=== PATIENT | male | born 1980 | race Caucasian/White ===

== ENCOUNTER 2016-08-29 09:39 | Emergency (ER) | payer OTHER ==
[2016-08-29 10:16] VITALS: BP 135/94
--- NOTE | 2016-08-29 10:38 | UC ---
Abdominal Pain Male HPI - HPI Summary HPI Summary: 2 nights ago developed nausea and vomiting; had lots of vomiting through about noon yesterday, then developed significant diarrhea (> than 20 times per day) since then. Has been seeing BRBPR on toilet paper, in water, and on stool. Pt has IBS, celiac, and long history of GI problems and has had bloody stool in the past, though this is worse. He feels he has hemorrhoids and thinks the bleeding will resolve on its own. Does not want rectal exam today. Mostly here for work note because he does not get much sick time. - History of Current Complaint Chief Complaint: UCGeneralIllness Stated Complaint: DIARRHEA/VOMITING Time Seen by Provider: 08/29/16 10:13 Hx Obtained From: Patient Onset/Duration: Sudden Onset, Lasting Days Timing: Constant Severity Initially: Moderate Severity Currently: Moderate Location: Diffuse Radiates: No Character: Aching, Cramping Aggravating Factor(s):: Nothing Alleviating Factor(s): Nothing Associated Signs And Symptoms: Positive: Vomiting, Diarrhea - Allergies/Home Medications Allergies/Adverse Reactions: Allergies Allergy/AdvReac Type Severity Reaction Status Date / Time seasonal Allergy Coughing Uncoded 08/29/16 10:11 Home Medications: Home Medications Esomeprazole(NF) [NexIUM(NF)] 40 mg PO DAILY 08/29/16 [History Confirmed ] PMH/Surg Hx/FS Hx/Imm Hx GI/ History: Diverticulitis, Other - celiac disease, IBS Other GI/ History: celiac, IBS - Surgical History Surgical History: Yes Surgery Procedure, Year, and Place: RIGHT ANKLE and leg with titanium plates, ,[facility] [place] - Family History Known Family History: Positive: None, Cardiac Disease, Hypertension, Diabetes, Other - FATHER SEVERE ARTRITIS - Social History Occupation: Employed Full-time Alcohol Use: Weekly Alcohol Amount: 4 vodkas on weekend Substance Use Type: None Smoking Status (MU): Never Smoked Tobacco Type: Smokeless Tobacco Amount Used/How Often: 1 can every 2-3 days Length of Time of Smoking/Using Tobacco: 18 years Review of Systems Constitutional: Negative Skin: Negative Eyes: Negative ENT: Negative Respiratory: Negative Cardiovascular: Negative Gastrointestinal: Abdominal Pain, Vomiting, Diarrhea Genitourinary: Negative Motor: Negative Neurovascular: Negative Musculoskeletal: Negative Neurological: Negative Psychological: Negative All Other Systems Reviewed And Are Negative: Yes Physical Exam Triage Information Reviewed: Yes Appearance: Well-Appearing, No Pain Distress, Well-Nourished Vital Signs: Initial Vital Signs Temp 97.9 F 08/29/16 10:12 Pulse 90 08/29/16 10:12 Resp 16 08/29/16 10:12 BP 135/94 08/29/16 10:12 Pulse Ox 97 08/29/16 10:12 Vital Signs Reviewed: Yes Eye Exam: Normal Eyes: Positive: Conjunctiva Clear ENT Exam: Normal ENT: Positive: Normal ENT inspection, Hearing grossly normal, Pharynx normal, TMs normal Dental Exam: Normal Neck exam: Normal Neck: Positive: Supple, Nontender, No Lymphadenopathy Respiratory Exam: Normal Respiratory: Positive: Chest non-tender, Lungs clear, Normal breath sounds, No respiratory distress, No accessory muscle use Cardiovascular Exam: Normal Cardiovascular: Positive: RRR, No Murmur Abdomen Description: Positive: Soft. Negative: Nontender - diffusely tender, CVA Tenderness (R), CVA Tenderness (L), McBurney's Point Tenderness Bowel Sounds: Positive: Present Musculoskeletal Exam: Normal Neurological Exam: Normal Neurological: Positive: Alert Psychological Exam: Normal Skin Exam: Normal Abd Pain Male Course/Dx - Differential Dx/Clinical Impression Provider Diagnoses: acute gastroenteritis. elevated blood pressure due to discomfort Discharge - Discharge Plan Condition: Stable Disposition: HOME Patient Education Materials: Gastroenteritis (ED) Forms: *Work Release Referrals: No Primary Care Phys,NOPCP [Primary Care Provider] - Additional Instructions: As we discussed, your symptoms sound consistent with a viral infection. Though it can take a while for stool patterns to normalize, I would expect your symptoms to fall noticeably in frequency by this weekend. If they don't, please go to the emergency department. You have stated that the bright red blood in your stool has happened to you before and that you are pretty sure you have hemorrhoids right now. Since you declined an exam, it is important for you to see your GI specialist if the bleeding does not fully resolve within a week.
== END 2016-08-29 10:40 | disposition home or self-care (01) ==
LOC: UCCORT 09:39
DX: K52.9 Noninfective gastroenteritis and colitis, unspecified (principal); R03.0 Elevated blood-pressure reading, without diagnosis of hypertension; F17.220 Nicotine dependence, chewing tobacco, uncomplicated
CPT/HCPCS: 99211; G0463

== ENCOUNTER 2016-10-22 12:42 | Emergency (ER) | payer OTHER ==
[2016-10-22 13:06] VITALS: BP 160/101
--- NOTE | 2016-10-22 13:32 | UC ---
Breast Complaint - HPI Summary HPI Summary: lump on left breast x 1 week noted a lump under the left nipple, + soft, mild tenderness , no redness or discharge, not getting larger or smaller over the past week - History of Current Complaint Hx Obtained From: Patient Breast Chief Complaint: Palpable Lump - left breast Onset/Duration: Started Days Ago - 7, Still Present Timing: Constant Breast Pain Radiates To: Other: - none Breast Pain Aggravating Factors: Palpation Breast Pain Alleviating Factors: Nothing Breast Associated Signs/Symptoms: Negative - Allergy/Home Medications Allergies/Adverse Reactions: Allergies Allergy/AdvReac Type Severity Reaction Status Date / Time seasonal Allergy Coughing Uncoded 10/22/16 12:55 PMH/Surg Hx/FS Hx/Imm Hx Cardiovascular History: Hypertension - Surgical History Surgical History: Yes Surgery Procedure, Year, and Place: RIGHT ANKLE and leg with titanium plates, ,[facility] – [place] - Family History Known Family History: Positive: None, Cardiac Disease, Hypertension, Diabetes, Other - FATHER SEVERE ARTRITIS - Social History Alcohol Use: Weekly Alcohol Amount: On weekends Substance Use Type: None Smoking Status (MU): Never Smoked Tobacco Type: Smokeless Tobacco Amount Used/How Often: 1 can every 2-3 days Length of Time of Smoking/Using Tobacco: 18 years - Immunization History Most Recent Influenza Vaccination: NONE 2015 Most Recent Tetanus Shot: 2011 Most Recent Pneumonia Vaccination: N/A Review of Systems Constitutional: Negative Skin: Negative Eyes: Negative ENT: Negative Respiratory: Negative Cardiovascular: Negative All Other Systems Reviewed And Are Negative: Yes Physical Exam Triage Information Reviewed: Yes Appearance: Well-Appearing, No Pain Distress, Well-Nourished Vital Signs: Initial Vital Signs Temp 96.8 F 10/22/16 12:57 Pulse 101 10/22/16 12:57 Resp 18 10/22/16 12:57 BP 160/101 10/22/16 12:57 Pulse Ox 100 10/22/16 12:57 Vital Signs Reviewed: Yes Eyes: Positive: Conjunctiva Clear ENT: Positive: Normal ENT inspection, Hearing grossly normal, Pharynx normal Neck: Positive: Supple, Nontender, No Lymphadenopathy Respiratory: Positive: Chest non-tender, Lungs clear, Normal breath sounds, Other: - breast exam : left breast: no swelling, no erythema, + 1 cm cystic mass under the left breast , movable, mild tenderness, Cardiovascular: Positive: No Murmur, Tachycardia Abdominal Exam: Normal Abdomen Description: Positive: Soft Bowel Sounds: Positive: Present Breast Pain Course/Dx - Diagnoses Provider Diagnoses: Breast cyst, Hypertension Discharge - Discharge Plan Condition: Stable Disposition: HOME Prescriptions: Lisinopril [Zestril 10 MG-] 10 mg PO DAILY #30 tab Patient Education Materials: Chronic Hypertension (ED), Cyst (ED) Referrals: [facility] [Outside] No Primary Care Phys,NOPCP [Primary Care Provider] - Additional Instructions: 1. cyst left breast: please monitor the area for now , have a follow up in 4 weeks, if the mass is not gone may need an Ultrasound / more workup 2. hypertension : will restart your blood pressure medication. check you bp 2x per week and keep a log follow up with your pcp in 4 weeks
== END 2016-10-22 13:40 | disposition home or self-care (01) ==
LOC: UCCORT 12:42
DX: N60.02 Solitary cyst of left breast (principal); I10 Essential (primary) hypertension
CPT/HCPCS: 99212; G0463

== ENCOUNTER 2016-11-12 08:50 | Emergency (ER) | payer OTHER ==
[2016-11-12 09:44] VITALS: BP 126/73
--- NOTE | 2016-11-12 09:57 | UC ---
Throat Pain/Nasal Leonel HPI - HPI Summary HPI Summary: 36 yo male with sore throat/nasal congestion and sinus tenderness x 3-4 weeks state he was supposed to have sinus surgery no f/c no cp/cough - History of Current Complaint Chief Complaint: UCRespiratory Stated Complaint: SORE THROAT Time Seen by Provider: 11/12/16 09:44 Hx Obtained From: Patient Onset/Duration: Gradual Onset Severity: Moderate Pain Intensity: 4 Pain Scale Used: 0-10 Numeric Cough: Nonproductive Associated Signs & Symptoms: Positive: Sinus Discomfort, Nasal Discharge - Epiglottits Risk Factors Epiglottis Risk Factors: Negative - Allergies/Home Medications Allergies/Adverse Reactions: Allergies Allergy/AdvReac Type Severity Reaction Status Date / Time seasonal Allergy Coughing Uncoded 11/12/16 09:27 Home Medications: Home Medications Lisinopril [Zestril 10 MG-] 10 mg PO QPM 11/12/16 [History Confirmed 11/12/16] PMH/Surg Hx/FS Hx/Imm Hx Previously Healthy: Yes Cardiovascular History: Hypertension - Surgical History Surgical History: Yes Surgery Procedure, Year, and Place: RIGHT ANKLE and leg with titanium plates, ,[facility] [place] - Family History Known Family History: Positive: Cardiac Disease, Hypertension, Diabetes, Other - FATHER SEVERE ARTRITIS/strong fhx of lymphoma - Social History Alcohol Use: Weekly Alcohol Amount: On weekends-6 Substance Use Type: None Smoking Status (MU): Never Smoked Tobacco Type: Smokeless Tobacco Amount Used/How Often: 1 can every 2-3 days Length of Time of Smoking/Using Tobacco: 18 years - Immunization History Most Recent Influenza Vaccination: NONE 2015 Most Recent Tetanus Shot: 2011 Most Recent Pneumonia Vaccination: N/A Review of Systems Constitutional: Negative Skin: Negative Eyes: Negative ENT: Ear Ache, Nasal Discharge, Sinus Congestion, Sinus Pain/Tenderness Respiratory: Cough Cardiovascular: Negative Gastrointestinal: Negative Genitourinary: Negative Motor: Negative Neurovascular: Negative Musculoskeletal: Negative Neurological: Negative Psychological: Negative All Other Systems Reviewed And Are Negative: Yes Physical Exam Triage Information Reviewed: Yes Appearance: Well-Appearing, No Pain Distress, Well-Nourished Vital Signs: Initial Vital Signs Temp 97.7 F 11/12/16 09:19 Pulse 98 11/12/16 09:19 Resp 18 11/12/16 09:19 BP 126/73 11/12/16 09:19 Pulse Ox 97 11/12/16 09:19 Vital Signs Reviewed: Yes Eyes: Positive: Conjunctiva Clear ENT: Positive: Hearing grossly normal, Pharyngeal erythema, Nasal congestion, Nasal drainage, TM bulging. Negative: TM red, Tonsillar exudate, Trismus, Muffled/hoarse voice Neck: Positive: Supple, Nontender, No Lymphadenopathy Respiratory: Positive: Lungs clear, Normal breath sounds, No respiratory distress, No accessory muscle use Cardiovascular: Positive: RRR, No Murmur Abdomen Description: Positive: Nontender, No Organomegaly, Soft. Negative: CVA Tenderness (R), CVA Tenderness (L), Distended, Guarding Bowel Sounds: Positive: Present Musculoskeletal: Positive: ROM Intact, No Edema Neurological: Positive: Alert Psychological Exam: Normal Skin Exam: Normal Throat Pain/Nasal Course/Dx - Differential Dx/Diagnosis Provider Diagnoses: acute sinusitis/pharyngitis Discharge - Discharge Plan Condition: Stable Disposition: HOME Prescriptions: Amoxicillin PO (*) [Amoxicillin 875 MG (*)] 875 mg PO BID #20 tab Lisinopril [Zestril 10 MG-] 10 mg PO DAILY #7 tab Patient Education Materials: Sinusitis (ED) Referrals: Jerri Chau PA [Primary Care Provider] - 6 Days (if not better) Additional Instructions: saline nasal spray 2 sprays twice daily
== END 2016-11-12 09:58 | disposition home or self-care (01) ==
LOC: UCCORT 08:50
DX: J01.90 Acute sinusitis, unspecified (principal); J02.9 Acute pharyngitis, unspecified; I10 Essential (primary) hypertension
CPT/HCPCS: 87651; 99212; G0463

== ENCOUNTER 2017-03-18 17:21 | Emergency (ER) | payer OTHER ==
--- NOTE | 2017-03-18 19:34 | UC ---
Back Pain HPI - HPI Summary HPI Summary: 36 YEAR OLD MALE PRESENTS WITH COMPLAINS OF BACK PAIN SECONDARY TO A FALL. - History of Current Complaint Stated Complaint: BACK PAIN DUE TO FALL Time Seen by Provider: 03/18/17 19:33 Hx Obtained From: Patient Onset/Duration: Sudden Onset Timing: Constant Severity Initially: Moderate Severity Currently: Moderate - Allergies/Home Medications Allergies/Adverse Reactions: Allergies Allergy/AdvReac Type Severity Reaction Status Date / Time seasonal Allergy Coughing Uncoded 03/18/17 19:43 PMH/Surg Hx/FS Hx/Imm Hx Previously Healthy: Yes - Surgical History Surgical History: Yes Surgery Procedure, Year, and Place: RIGHT ANKLE and leg with titanium plates, ,[facility] – [place] - Family History Known Family History: Positive: Cardiac Disease, Hypertension, Diabetes, Other - FATHER SEVERE ARTRITIS/strong fhx of lymphoma - Social History Alcohol Use: Weekly Alcohol Amount: On weekends-6 Substance Use Type: None Smoking Status (MU): Never Smoked Tobacco Type: Smokeless Tobacco Amount Used/How Often: 1 can every 2-3 days Length of Time of Smoking/Using Tobacco: 18 years - Immunization History Most Recent Influenza Vaccination: NONE 2015 Most Recent Tetanus Shot: 2011 Most Recent Pneumonia Vaccination: N/A Review of Systems Constitutional: Negative Skin: Negative Eyes: Negative ENT: Negative Respiratory: Negative Cardiovascular: Negative Gastrointestinal: Negative Genitourinary: Negative Motor: Negative Neurovascular: Negative Musculoskeletal: Other: - UPPER BACK PAIN Neurological: Negative Psychological: Negative All Other Systems Reviewed And Are Negative: Yes Physical Exam Triage Information Reviewed: Yes Vital Signs Reviewed: Yes Eye Exam: Normal ENT Exam: Normal Dental Exam: Normal Neck exam: Normal Neck: Positive: 1 Respiratory Exam: Normal Cardiovascular Exam: Normal Abdominal Exam: Normal Musculoskeletal: Positive: Other: - UPER BACK PAIN Neurological Exam: Normal Psychological Exam: Normal Skin Exam: Normal Back Pain Course/Dx - Differential Dx/Diagnosis Provider Diagnoses: UPPER BACK PAIN Discharge - Discharge Plan Condition: Stable Disposition: HOME Prescriptions: Ibuprofen TAB* [Motrin TAB* 800 MG] 800 mg PO Q6H #30 tab Methocarbamol TAB* [Robaxin 500 MG TAB*] 500 mg PO TID PRN #30 tab PRN Reason: Spasms - Back Patient Education Materials: Low Back Strain (ED), Hematuria (ED) Forms: *Work Release Referrals: Ally Martinez MD [Medical Doctor] - Jerri Chau PA [Physician [employer]] -
[2017-03-18 19:43] VITALS: BP 127/83
--- NOTE | 2017-03-18 20:24 | RAD ---
INDICATION: Back pain fall. COMPARISON: None TECHNIQUE: Upright 2 view imaging was performed FINDINGS: Bones: There are no acute bony findings. There are no significant osteoarthritic findings. Alignment: There is minor kyphosis. Disc spaces: The disc spaces are well-maintained Soft tissues: There are no soft tissue abnormalities. IMPRESSION: NO ACUTE BONY FINDINGS.
== END 2017-03-18 20:47 | disposition home or self-care (01) ==
LOC: UCCORT 17:21
DX: M54.6 Pain in thoracic spine (principal)
CPT/HCPCS: 72070; 81003; 99212; G0463

== ENCOUNTER 2017-04-30 09:01 | Emergency (ER) | payer OTHER ==
[2017-04-30 10:05] VITALS: BP 125/85
--- NOTE | 2017-04-30 10:22 | UC ---
GI Bleed HPI - HPI Summary HPI Summary: Vomiting and diarrhea starting Friday. he has no significant pain. He has hx of IBS. - History Of Current Complaint Chief Complaint: UCGI Stated Complaint: VOMITING NEEDS DR NOTE Time Seen by Provider: 04/30/17 10:05 Hx Obtained From: Patient Onset/Duration: Gradual Onset, Lasting Days Severity: Blood-Streaked Stool Severity Initially: Mild Severity Currently: Moderate Pain Intensity: 0 Associated Pain: None Character: Not Applicable Aggravating Factor(s): Food Associated Signs And Symptoms: Positive: Nausea. Negative: Dizziness, Weakness , Syncope, Constipation, Rectal Pain, Bruising, Weight Loss - Allergies/Home medications Allergies/Adverse Reactions: Allergies Allergy/AdvReac Type Severity Reaction Status Date / Time seasonal Allergy Coughing Uncoded 04/30/17 10:02 Home Medications: Home Medications Bupropion XL* [Wellbutrin XL *] 300 mg PO DAILY 04/30/17 [History Confirmed ] PMH/Surg Hx/FS Hx/Imm Hx Previously Healthy: No - IBS. - Surgical History Surgical History: Yes Surgery Procedure, Year, and Place: RIGHT [place]LE and leg with [place] plates, [place] [place] - Family History Known Family History: Positive: Cardiac Disease, Hypertension, Diabetes, Other - FATHER SEVERE ARTRITIS/strong fhx of lymphoma - Social History Occupation: Employed Full-time Alcohol Use: Occasionally Alcohol Amount: On weekends-6 Substance Use Type: None Smoking Status (MU): Current Some Day Smoker Type: Smokeless Tobacco Amount Used/How Often: 1 can every 2-3 days Length of Time of Smoking/Using Tobacco: 18 years - Immunization History Most Recent Influenza Vaccination: NONE 2015 Most Recent Tetanus Shot: 2011 Most Recent Pneumonia Vaccination: N/A Review of Systems Gastrointestinal: Vomiting, Diarrhea All Other Systems Reviewed And Are Negative: Yes Physical Exam Triage Information Reviewed: Yes Appearance: Well-Appearing, No Pain Distress, Well-Nourished Vital Signs: Initial Vital Signs Temp 98.7 F 04/30/17 10:01 Pulse 95 04/30/17 10:01 Resp 16 04/30/17 10:01 BP 125/85 04/30/17 10:01 Pulse Ox 97 04/30/17 10:01 Vital Signs Reviewed: Yes Eyes: Positive: Conjunctiva Clear. Negative: Conjunctiva Inflamed ENT: Positive: Pharynx normal Neck: Positive: Supple, Nontender, No Lymphadenopathy Respiratory: Positive: Lungs clear, Normal breath sounds, No respiratory distress, No accessory muscle use. Negative: Respiratory distress, Decreased breath sounds, Accessory muscle use, Crackles, Rhonchi, Stridor, Wheezing Cardiovascular: Positive: No Murmur, Pulses Normal, Brisk Capillary Refill Abdomen Description: Positive: No Organomegaly, Soft. Negative: Distended, Guarding Musculoskeletal: Positive: Strength Intact, ROM Intact, No Edema Neurological: Positive: Alert, Muscle Tone Normal. Negative: Fatigued Psychological: Positive: Normal Response To Family, Age Appropriate Behavior Skin: Negative: rashes Bleed Course/Dx - Differential Dx/Diagnosis Provider Diagnoses: gastroenteritis. Discharge - Discharge Plan Condition: Good Disposition: HOME Prescriptions: Diphenoxylat/Atrop 2.5-0.025M* [Lomotil TAB*] 1 tab PO QID PRN #12 tab MDD 3 PRN Reason: Diarrhea Ondansetron ODT TAB* [Zofran 4 MG Odt TAB*] 4 mg PO Q8H PRN #10 tab.odt PRN Reason: Nausea Patient Education Materials: Gastroenteritis (ED) Forms: *Work Release Referrals: No Primary Care Phys,NOPCP [Primary Care Provider] -
== END 2017-04-30 10:23 | disposition home or self-care (01) ==
LOC: UCCORT 09:01
DX: K52.9 Noninfective gastroenteritis and colitis, unspecified (principal); R11.0 Nausea; Z72.0 Tobacco use
CPT/HCPCS: 99212; G0463

== ENCOUNTER 2017-10-05 10:43 | Emergency (ER) | payer OTHER ==
[2017-10-05 11:48] VITALS: BP 131/83
== END 2017-10-05 12:20 | disposition left against medical advice (07) ==
LOC: UCCORT 10:43
DX: M25.9 Joint disorder, unspecified (principal); Z53.21 Procedure and treatment not carried out due to patient leaving prior to being seen by health care provider

== ENCOUNTER 2017-10-10 09:16 | Emergency (ER) | payer OTHER ==
[2017-10-10 09:42] VITALS: BP 151/99
--- NOTE | 2017-10-10 10:56 | UC ---
Abdominal Pain Male HPI - HPI Summary HPI Summary: Pt c/o generalized abdominal pain that began 2 days ago. Pt reports that friday morning he began vomiting "violently all day and in into the night" . Pt also reports that he had sudden onset of diarrhea with onset of vomiting as well. Pt states that nausea, vomiting and diarrhea have resolved. But continues with generalized abdominal pain, decreased appetite and malaise. Pt has hx of IBS and umbilical hernia. Pt denies increase pain at hernia and reports that he has not had a "flare" of IBS recently. Pt last BM yesterday, normal pattern is once daily. Pt denies BRBPR, tarry stool, mucus in stool. Denies fever or chills. Has not passe flatus today, but has belched. - History of Current Complaint Chief Complaint: UCAbdominalPain Stated Complaint: NAUSEA/DIARRHEA Time Seen by Provider: 10/10/17 10:16 Onset/Duration: Sudden Onset, Still Present Timing: Constant Severity Initially: Moderate Severity Currently: Mild Pain Intensity: 4 Location: Diffuse Radiates: No Character: Colicy, Dull Aggravating Factor(s): Food, Movement Alleviating Factor(s): Rest Associated Signs And Symptoms: Positive: Decreased Appetite - Risk Factors Testicular Torsion: Negative Cardiac Risk Factors: Negative - Allergies/Home Medications Allergies/Adverse Reactions: Allergies Allergy/AdvReac Type Severity Reaction Status Date / Time seasonal Allergy Coughing Uncoded 10/05/17 11:39 Home Medications: Home Medications Ibuprofen 600 mg PO Q4H 10/10/17 [History Confirmed 10/10/17] PMH/Surg Hx/FS Hx/Imm Hx Previously Healthy: Yes - Surgical History Surgical History: Yes Surgery Procedure, Year, and Place: [place]LE and [place] with [place] plates[place] [place] Family History Known Family History: Positive: Cardiac Disease, Hypertension, Diabetes, Other - FATHER SEVERE ARTRITIS/strong fhx of lymphoma - Social History Occupation: Employed Full-time Lives: With Family Alcohol Use: Weekly Alcohol Amount: On weekends-6 Substance Use Type: None Smoking Status (MU): Never Smoked Tobacco Type: Smokeless Tobacco Amount Used/How Often: 1 can every 2-3 days Length of Time of Smoking/Using Tobacco: 18 years Have You Smoked in the Last Year: Yes - smokeless - Immunization History Most Recent Influenza Vaccination: NONE 2015 Most Recent Tetanus Shot: 2011 Most Recent Pneumonia Vaccination: N/A Review of Systems Constitutional: Fatigue Skin: Negative Eyes: Negative ENT: Negative Respiratory: Negative Cardiovascular: Negative Gastrointestinal: Abdominal Pain, Vomiting, Diarrhea, Nausea Genitourinary: Negative Motor: Negative Neurovascular: Negative Musculoskeletal: Negative Neurological: Negative Psychological: Negative Is Patient Immunocompromised?: No All Other Systems Reviewed And Are Negative: Yes Physical Exam Triage Information Reviewed: Yes Appearance: Pain Distress Vital Signs: Initial Vital Signs Temp 98.0 F 10/10/17 09:35 Pulse 109 10/10/17 09:35 Resp 18 10/10/17 09:35 BP 151/99 10/10/17 09:35 Pulse Ox 99 10/10/17 09:35 Vital Signs Reviewed: Yes Eye Exam: Normal ENT: Positive: Hearing grossly normal Dental Exam: Normal Neck: Positive: Supple Respiratory: Positive: No respiratory distress Abdomen Description: Positive: Other: - soft,non tender, umbilical hernia at 12 -2 oclock position, generalized tenderness of abdomen Bowel Sounds: Positive: Absent Musculoskeletal Exam: Normal Neurological Exam: Normal Psychological Exam: Normal Skin Exam: Normal Diagnostics - Radiology No standard instances Radiology Interpretation Completed By: Radiologist - Flat and upright views of the abdomen demonstrates no free air. No dilated loops of bowel are noted. Colon is filled with stool. IMPRESSION: No free air or obstruction is noted. Abd Pain Male Course/Dx - Differential Dx/Clinical Impression Differential Diagnosis/HQI/PQRI: Bowel Obstruction, Constipation Provider Diagnoses: abdominal pain. constipation Discharge - Sign-Out/Discharge Documenting (check all that apply): Patient Departure - Discharge Plan Condition: Stable Disposition: HOME-RECOMMEND TO ED Patient Education Materials: Acute Abdominal Pain (ED) Forms: *Work Release Referrals: Jerri Mcnamara MD [Primary Care Provider] - Additional Instructions: We recommend that you seek care immediately at the closest Emergency Room. We believe you need a higher level care. - Billing Disposition and Condition Condition: STABLE Disposition: Home-Recommend to ED
== END 2017-10-10 11:18 | disposition home health service (06) ==
LOC: UCCORT 09:16
DX: R10.84 Generalized abdominal pain (principal); K59.00 Constipation, unspecified; F17.220 Nicotine dependence, chewing tobacco, uncomplicated
CPT/HCPCS: 74019; 99212; G0463